=== PATIENT | male | born 1955 | race African-American/Black ===

== ENCOUNTER 2020-02-24 08:19 | Emergency (ER) | payer MEDICAID ==
[~2020-02-24] VITALS: Ht 180.3 cm; Wt 78.0 kg
[~2020-02-24 08:19] MED LIST: AMLO10TA4 PO; ASPI-1158 PO; ATOR10TA PO; LISI-604 PO
[2020-02-24] MEDS ORDERED: BACITRACIN ZINC OINT UDPKT TOP ONE (08:45)
[2020-02-24 11:55] VITALS: BP 151/81
== END 2020-02-24 12:01 | disposition home or self-care (01) ==
LOC: ER 08:19
DX: S09.8XXA Other specified injuries of head, initial encounter (principal); W01.0XXA Fall on same level from slipping, tripping and stumbling without subsequent striking against object, initial encounter; Y93.9 Activity, unspecified; Y92.9 Unspecified place or not applicable; F10.129 Alcohol abuse with intoxication, unspecified; Y90.9 Presence of alcohol in blood, level not specified
CPT/HCPCS: 99284

== ENCOUNTER 2020-04-28 03:19 | Inpatient (IN) | payer MEDICAID ==
[2020-04-28] VITALS (11 sets, daily range): BP systolic 160–188; BP diastolic 93–141
[~2020-04-28] VITALS: Ht 180.3 cm; Wt 81.8 kg
[2020-04-28] MEDS ORDERED: CHLORDIAZEPOXIDE 25MG CAPSULE PO ONE (03:45)
[2020-04-28] MEDS ORDERED: ONDANSETRON HCL 4MG/2ML INJ IV ONE (03:45)
[2020-04-28] MEDS ORDERED: SODIUM CHLORIDE 0.9% 1,000 ML IV ONE ×2 (03:45→04:30)
[2020-04-28] MEDS ORDERED: LORAZEPAM 2MG/ML CPJ IV ONE (04:30)
[2020-04-28] MEDS ORDERED: DIAZEPAM 5 MG/ML 2ML CPJ IV ONE (05:00)
[2020-04-28 05:08] LABS: CANNABINOID URINE SCREEN NEGATIVE (NEGATIVE)
[2020-04-28 05:09] LABS: *AMPHETAMINES SCREEN URINE NEGATIVE (NEGATIVE); *BARBITURATES SCREEN URINE NEGATIVE (NEGATIVE); *BENZODIAZEPINES SCREEN URINE NEGATIVE (NEGATIVE); *COCAINE SCREEN URINE NEGATIVE (NEGATIVE); METHADONE URINE SCREEN NEGATIVE (NEGATIVE); OPIATES URINE SCREEN NEGATIVE (NEGATIVE)
[2020-04-28 05:10] LABS: PHENCYCLIDINE URINE SCREEN NEGATIVE (NEGATIVE)
[2020-04-28] MEDS ORDERED: LEVETIRACETAM 500MG PREMIX 100 ML IV ONE (05:30)
[2020-04-28 05:39] LABS: CHLORIDE 106 mEq/L (98-107)
[2020-04-28 05:43] LABS: BASOPHILS % 1.3 % (0.0-2.0); CLARITY URINE CLOUDY (CLEAR); COLOR URINE DK YELLOW (YELLOW); EOSINOPHILS % 0.2 % (0.0-5.0); HEMATOCRIT. 45.2 % (42.0-52.0); KETONES URINE TRACE (NEGATIVE); LEUKOCYTE ESTERASE URINE 1+ (NEGATIVE); LYMPHOCYTES % 20.9 % (20.0-50.0); MEAN CORPUSCULAR HEMOGLOBIN 33.7 pg (28.0-32.0); MEAN CORPUSCULAR VOLUME 101.5 fL (80.0-94.0); MEAN PLATELET VOLUME 8.9 fl (7.4-10.4); MONOCYTES % 8.9 % (2.0-8.0); NEUTROPHILS % 68.7 % (40.0-76.0); NITRITE URINE NEGATIVE (NEGATIVE); OCCULT BLOOD URINE 3+ (NEGATIVE); PH URINE 5.5 (4.5-8.0); PLATELET 100 x1000/uL (130-400); PROTEIN URINE 3+ (NEGATIVE); RED BLOOD CELL COUNT 4.46 mill/uL (4.7-6.1); RED CELL DISTRIBUTION WIDTH 14.4 % (11.6-14.6); SPECIFIC GRAVITY URINE 1.019 (1.005-1.030)
[2020-04-28 05:44] LABS: ETHANOL BLOOD 36 mg/dL
[2020-04-28 05:48] LABS: CREATINE KINASE 608 IU/L (39-308)
[2020-04-28] MEDS ORDERED: LABETALOL 5MG/ML SYR 20 MG/4 ML SYRINGE IV ONE (06:00)
[2020-04-28] MEDS ORDERED: HYDRALAZINE 20MG/ML VIAL IV ONE (06:15)
[2020-04-28] MEDS ORDERED: CEFTRIAXONE 1 G PREMIX 50 ML IV NR (06:15)
[2020-04-28] MEDS ORDERED: DOCUSATE SODIUM 100MG CAPSULE PO PRN (07:30)
[2020-04-28] MEDS ORDERED: MVI, ADULT NO.1 10 ML, FOLIC ACID 1 MG, THIAMINE HCL 100 MG in SODIUM CHLORIDE 0.9% 1,0... IV ONE ×4 (07:30)
[2020-04-28] MEDS ORDERED: GUAIFENESIN 200MG/10ML SUGAR FREE UDC PO PRN (07:30)
[2020-04-28] MEDS ORDERED: ENOXAPARIN 40MG/0.4ML SYR SUBCUT SCH (07:30)
[2020-04-28] MEDS ORDERED: IPRATROPIUM/ALBUTEROL 0.5-3(2.5)MG/3ML NEB HHN PRN (07:30)
[2020-04-28] MEDS ORDERED: HYDROCODONE/ACETAMINOPHEN 10/325MG TABLET PO PRN (07:30)
[2020-04-28] MEDS ORDERED: CEFTRIAXONE 1 G PREMIX 50 ML IV SCH (07:30)
[2020-04-28] MEDS ORDERED: DIPHENHYDRAMINE 50MG/ML VIAL IV PRN (07:30)
[2020-04-28] MEDS ORDERED: ONDANSETRON HCL 4MG/2ML INJ IV PRN (07:30)
[2020-04-28] MEDS ORDERED: MAGNESIUM/ALUMINUM HYDROXIDE/SIMETHICONE 30ML UDC PO PRN (07:30)
[2020-04-28] MEDS: SODIUM CHLORIDE 0.45% 1,000 ML IV SCH ×2 (08:17→09:13)
[2020-04-28] MEDS ORDERED: THIAMINE HCL 100MG TABLET PO SCH (09:00)
[2020-04-28] MEDS ORDERED: MULTIVITAMINS,THER W-MINERALS TABLET PO SCH (09:00)
[2020-04-28] MEDS ORDERED: FOLIC ACID 1MG TABLET PO SCH (09:00)
[2020-04-28] MEDS: ENOXAPARIN 40MG/0.4ML SYR SUBCUT SCH (09:11)
[2020-04-28] MEDS: LORAZEPAM 2MG/ML CPJ IV PRN (09:12)
[2020-04-28] MEDS: HYDRALAZINE 20MG/ML VIAL IV PRN (09:13)
[2020-04-28] MEDS ORDERED: CHLORDIAZEPOXIDE 25MG CAPSULE PO SCH (10:30)
[2020-04-28] MEDS: LEVETIRACETAM 500MG TABLET PO SCH ×2 (11:47→21:16)
[2020-04-28] MEDS: AMLODIPINE 10MG TABLET PO SCH (11:47)
[2020-04-28] MEDS: AZITHROMYCIN 500 MG in DEXT 5% WATER 250 ML IV SCH (11:48)
[2020-04-28] MEDS: DEXT 5%/0.45% NACL 1000ML 1,000 ML IV SCH ×2 (11:52→21:17)
[2020-04-28] MEDS: CHLORDIAZEPOXIDE 25MG CAPSULE PO SCH ×2 (13:25→21:16)
[2020-04-28] MEDS: METOPROLOL TARTRATE 50MG TABLET PO SCH ×2 (13:25→21:16)
[2020-04-28] MEDS: SODIUM CHLORIDE 0.9% INJ 3ML FLUSH IVF SCH ×2 (14:00→21:17)
[2020-04-28] MEDS: ACETAMINOPHEN 325MG TABLET PO PRN ×2 (16:00→23:46)
[2020-04-28] MEDS: CLONIDINE 0.1MG TABLET PO PRN (23:47)
[2020-04-29] VITALS (12 sets, daily range): BP systolic 131–179; BP diastolic 62–100
[2020-04-29] MEDS: DEXT 5%/0.45% NACL 1000ML 1,000 ML IV SCH ×3 (03:42→23:05)
[2020-04-29] MEDS: CHLORDIAZEPOXIDE 25MG CAPSULE PO SCH ×3 (05:40→21:45)
[2020-04-29] MEDS: SODIUM CHLORIDE 0.9% INJ 3ML FLUSH IVF SCH ×3 (05:40→22:00)
[2020-04-29 05:54] LABS: BASOPHILS % 0.4 % (0.0-2.0); EOSINOPHILS % 0.5 % (0.0-5.0); HEMATOCRIT. 43.4 % (42.0-52.0); HEMOGLOBIN. 14.9 g/dL (14.0-18.0); LYMPHOCYTES % 24.3 % (20.0-50.0); MEAN CORPUSCULAR HEMOGLOBIN 33.8 pg (28.0-32.0); MEAN PLATELET VOLUME 9.5 fl (7.4-10.4); MONOCYTES % 7.5 % (2.0-8.0); NEUTROPHILS % 67.3 % (40.0-76.0); PLATELET 57 x1000/uL (130-400); RED BLOOD CELL COUNT 4.39 mill/uL (4.7-6.1); RED CELL DISTRIBUTION WIDTH 14.4 % (11.6-14.6)
[2020-04-29 06:00] LABS: CHLORIDE 102 mEq/L (98-107)
[2020-04-29] MEDS ORDERED: CEFTRIAXONE 1 G PREMIX 50 ML IV SCH (08:00)
[2020-04-29] MEDS ORDERED: POTASSIUM CHLORIDE 20MEQ TABLET SR PO NR ×2 (08:45→20:00)
[2020-04-29] MEDS ORDERED: POTASSIUM CHLORIDE INJ 40 MEQ in DEXT 5% WATER 500 ML IV NR (09:00)
[2020-04-29] MEDS: ENOXAPARIN 40MG/0.4ML SYR SUBCUT SCH ×2 (09:00→09:04)
[2020-04-29] MEDS: CEFTRIAXONE 1,000 MG in DEXTROSE 5% WATER 50 ML IV SCH (09:02)
[2020-04-29] MEDS: AMLODIPINE 10MG TABLET PO SCH (09:02)
[2020-04-29] MEDS: MULTIVITAMINS,THER W-MINERALS TABLET PO SCH (09:02)
[2020-04-29] MEDS: FOLIC ACID 1MG TABLET PO SCH (09:03)
[2020-04-29] MEDS: LEVETIRACETAM 500MG TABLET PO SCH ×2 (09:03→21:45)
[2020-04-29] MEDS: METOPROLOL TARTRATE 50MG TABLET PO SCH ×2 (09:03→23:05)
[2020-04-29] MEDS: THIAMINE HCL 100MG TABLET PO SCH (09:04)
[2020-04-29 10:01] LABS: T4 FREE 1.12 ng/dL (0.76-1.46)
[2020-04-29] MEDS ORDERED: MAGNESIUM 2 G PREMIX 50 ML IV ONE (10:30)
[2020-04-29] MEDS ORDERED: MAGNESIUM 2 G PREMIX 50 ML IV NR (12:00)
[2020-04-29] MEDS: AZITHROMYCIN 500 MG in DEXT 5% WATER 250 ML IV SCH (14:31)
[2020-04-29] MEDS: SODIUM CHLORIDE 0.45% 1,000 ML IV SCH (20:47)
[2020-04-29 23:59] LABS: CREATINE KINASE 295 IU/L (39-308)
[2020-04-30] VITALS (12 sets, daily range): BP systolic 118–149; BP diastolic 38–104
[2020-04-30] LABS: CREATINE KINASE MB FRACTION 2.1 ng/mL (0.5-3.6)
[2020-04-30] MEDS: SODIUM CHLORIDE 0.9% INJ 3ML FLUSH IVF SCH ×3 (06:00→20:56)
[2020-04-30] MEDS: CHLORDIAZEPOXIDE 25MG CAPSULE PO SCH ×3 (06:04→20:55)
[2020-04-30 07:21] LABS: BASOPHILS % 0.6 % (0.0-2.0); EOSINOPHILS % 2.2 % (0.0-5.0); HEMATOCRIT. 37.8 % (42.0-52.0); HEMOGLOBIN. 12.9 g/dL (14.0-18.0); LYMPHOCYTES % 21.1 % (20.0-50.0); MEAN CORPUSCULAR HEMOGLOBIN 33.7 pg (28.0-32.0); MEAN CORPUSCULAR VOLUME 99.1 fL (80.0-94.0); MEAN PLATELET VOLUME 9.3 fl (7.4-10.4); MONOCYTES % 9.8 % (2.0-8.0); NEUTROPHILS % 66.3 % (40.0-76.0); RED BLOOD CELL COUNT 3.82 mill/uL (4.7-6.1); RED CELL DISTRIBUTION WIDTH 13.9 % (11.6-14.6)
[2020-04-30 07:31] LABS: CHLORIDE 104 mEq/L (98-107)
[2020-04-30 07:40] LABS: CREATINE KINASE 214 IU/L (39-308)
[2020-04-30 07:43] LABS: CREATINE KINASE MB FRACTION 1.6 ng/mL (0.5-3.6)
[2020-04-30 08:08] LABS: PLATELET 50 x1000/uL (130-400)
[2020-04-30] MEDS: THIAMINE HCL 100MG TABLET PO SCH (08:42)
[2020-04-30] MEDS: MULTIVITAMINS,THER W-MINERALS TABLET PO SCH (08:42)
[2020-04-30] MEDS: CEFTRIAXONE 1,000 MG in DEXTROSE 5% WATER 50 ML IV SCH (08:42)
[2020-04-30] MEDS: LEVETIRACETAM 500MG TABLET PO SCH ×2 (08:43→20:55)
[2020-04-30] MEDS: AMLODIPINE 10MG TABLET PO SCH (08:43)
[2020-04-30] MEDS: FOLIC ACID 1MG TABLET PO SCH (08:43)
[2020-04-30] MEDS: SODIUM CHLORIDE 0.45% 1,000 ML IV SCH ×3 (08:47→21:47)
[2020-04-30] MEDS: METOPROLOL TARTRATE 50MG TABLET PO SCH ×2 (08:47→20:56)
[2020-04-30] MEDS ORDERED: POTASSIUM CHLORIDE 20MEQ TABLET SR PO SCH (09:00)
[2020-04-30] MEDS ORDERED: POTASSIUM CHLORIDE INJ 40 MEQ in DEXT 5% WATER 250 ML IV SCH (11:00)
[2020-04-30] MEDS: AZITHROMYCIN 500 MG in DEXT 5% WATER 250 ML IV SCH (11:27)
[2020-04-30] MEDS: DEXT 5%/0.45% NACL 1000ML 1,000 ML IV SCH (13:38)
[2020-04-30 14:08] LABS: PLATELET ESTIMATE MARKEDLY DECREASED
[2020-04-30] MEDS: LORAZEPAM 2MG/ML CPJ IV PRN (23:17)
[2020-04-30] MEDS: VANCOMYCIN 1 G PREMIX 200 ML IV SCH (23:44)
[2020-05-01] VITALS (11 sets, daily range): BP systolic 97–172; BP diastolic 36–101
[2020-05-01] MEDS: SODIUM CHLORIDE 0.9% INJ 3ML FLUSH IVF SCH ×3 (06:00→20:36)
[2020-05-01] MEDS: CHLORDIAZEPOXIDE 25MG CAPSULE PO SCH ×3 (06:07→20:36)
[2020-05-01] MEDS: VANCOMYCIN 1 G PREMIX 200 ML IV SCH ×3 (06:07→21:26)
[2020-05-01 07:51] LABS: BASOPHILS % 0.8 % (0.0-2.0); EOSINOPHILS % 1.7 % (0.0-5.0); HEMATOCRIT. 37.9 % (42.0-52.0); HEMOGLOBIN. 12.9 g/dL (14.0-18.0); LYMPHOCYTES % 19.1 % (20.0-50.0); MEAN CORPUSCULAR HEMOGLOBIN 33.7 pg (28.0-32.0); MEAN CORPUSCULAR VOLUME 99.2 fL (80.0-94.0); MEAN PLATELET VOLUME 9.7 fl (7.4-10.4); MONOCYTES % 14.2 % (2.0-8.0); NEUTROPHILS % 64.2 % (40.0-76.0); PLATELET 55 x1000/uL (130-400); RED BLOOD CELL COUNT 3.82 mill/uL (4.7-6.1); RED CELL DISTRIBUTION WIDTH 13.5 % (11.6-14.6)
[2020-05-01 07:57] LABS: CHLORIDE 105 mEq/L (98-107)
[2020-05-01] MEDS: AMLODIPINE 10MG TABLET PO SCH (09:51)
[2020-05-01] MEDS: AZITHROMYCIN 500 MG TABLET PO SCH (09:51)
[2020-05-01] MEDS: THIAMINE HCL 100MG TABLET PO SCH (09:51)
[2020-05-01] MEDS: LEVETIRACETAM 500MG TABLET PO SCH ×2 (09:51→20:33)
[2020-05-01] MEDS: MULTIVITAMINS,THER W-MINERALS TABLET PO SCH (09:51)
[2020-05-01] MEDS: FOLIC ACID 1MG TABLET PO SCH (09:51)
[2020-05-01] MEDS: METOPROLOL TARTRATE 50MG TABLET PO SCH ×2 (09:52→20:36)
[2020-05-01] MEDS: DEXT 5%/0.45% NACL 1000ML 1,000 ML IV SCH ×3 (12:00→23:12)
[2020-05-02] VITALS (12 sets, daily range): BP systolic 128–167; BP diastolic 72–103
[2020-05-02] MEDS: HYDRALAZINE 20MG/ML VIAL IV PRN (01:47)
[2020-05-02] MEDS: DEXT 5%/0.45% NACL 1000ML 1,000 ML IV SCH (05:00)
[2020-05-02] MEDS: VANCOMYCIN 1 G PREMIX 200 ML IV SCH ×3 (05:33→20:57)
[2020-05-02] MEDS: SODIUM CHLORIDE 0.9% INJ 3ML FLUSH IVF SCH ×3 (05:33→20:41)
[2020-05-02] MEDS: CHLORDIAZEPOXIDE 25MG CAPSULE PO SCH ×3 (05:33→20:48)
[2020-05-02] MEDS: THIAMINE HCL 100MG TABLET PO SCH (09:23)
[2020-05-02] MEDS: AZITHROMYCIN 500 MG TABLET PO SCH (09:23)
[2020-05-02] MEDS: AMLODIPINE 10MG TABLET PO SCH (09:24)
[2020-05-02] MEDS: MULTIVITAMINS,THER W-MINERALS TABLET PO SCH (09:24)
[2020-05-02] MEDS: LEVETIRACETAM 500MG TABLET PO SCH ×2 (09:24→20:40)
[2020-05-02] MEDS: FOLIC ACID 1MG TABLET PO SCH (09:24)
[2020-05-02] MEDS: METOPROLOL TARTRATE 50MG TABLET PO SCH ×2 (09:30→20:41)
[2020-05-02] MEDS: SODIUM CHLORIDE 0.45% 1,000 ML IV SCH (20:56)
[2020-05-03] VITALS (11 sets, daily range): BP systolic 120–165; BP diastolic 59–109
[2020-05-03] MEDS: LORAZEPAM 2MG/ML CPJ IV PRN (02:26)
[2020-05-03] MEDS: CHLORDIAZEPOXIDE 25MG CAPSULE PO SCH ×2 (04:44→13:20)
[2020-05-03] MEDS: SODIUM CHLORIDE 0.9% INJ 3ML FLUSH IVF SCH ×3 (04:44→22:00)
[2020-05-03] MEDS: VANCOMYCIN 1 G PREMIX 200 ML IV SCH (04:44)
[2020-05-03 07:43] LABS: HEMATOCRIT. 37.2 % (42.0-52.0); HEMOGLOBIN. 12.6 g/dL (14.0-18.0); MEAN CORPUSCULAR HEMOGLOBIN 34.1 pg (28.0-32.0); PLATELET 100 x1000/uL (130-400); RED BLOOD CELL COUNT 3.69 mill/uL (4.7-6.1); RED CELL DISTRIBUTION WIDTH 13.3 % (11.6-14.6)
[2020-05-03] MEDS: LEVETIRACETAM 500MG TABLET PO SCH ×2 (08:41→20:42)
[2020-05-03] MEDS: MULTIVITAMINS,THER W-MINERALS TABLET PO SCH (08:42)
[2020-05-03] MEDS: FOLIC ACID 1MG TABLET PO SCH (08:42)
[2020-05-03] MEDS: METOPROLOL TARTRATE 50MG TABLET PO SCH ×2 (08:42→20:42)
[2020-05-03] MEDS: AMLODIPINE 10MG TABLET PO SCH (08:43)
[2020-05-03] MEDS: THIAMINE HCL 100MG TABLET PO SCH (09:00)
[2020-05-03] MEDS: SODIUM CHLORIDE 0.45% 1,000 ML IV SCH (13:17)
[2020-05-03 16:52] LABS: CHLORIDE 107 mEq/L (98-107)
[2020-05-03 16:59] LABS: VANCOMYCIN TROUGH 11.7 ug/mL (5.0-10.0)
[2020-05-03 17:36] LABS: PLATELET ESTIMATE DECREASED
[2020-05-04] VITALS: BP 153/81
[2020-05-04] MEDS: SODIUM CHLORIDE 0.45% 1,000 ML IV SCH ×3 (00:47→14:43)
[2020-05-04 04:00] VITALS: BP 147/78
[2020-05-04] MEDS: SODIUM CHLORIDE 0.9% INJ 3ML FLUSH IVF SCH ×3 (05:29→22:00)
[2020-05-04 08:00] VITALS: BP 125/75
[2020-05-04 08:34] LABS: HEMOGLOBIN. 12.9 g/dL (14.0-18.0); MEAN CORPUSCULAR HEMOGLOBIN 33.7 pg (28.0-32.0); MEAN CORPUSCULAR VOLUME 98.9 fL (80.0-94.0); MEAN PLATELET VOLUME 9.7 fl (7.4-10.4); PLATELET 139 x1000/uL (130-400); RED BLOOD CELL COUNT 3.84 mill/uL (4.7-6.1); RED CELL DISTRIBUTION WIDTH 13.8 % (11.6-14.6)
[2020-05-04] MEDS: FOLIC ACID 1MG TABLET PO SCH (09:09)
[2020-05-04] MEDS: MULTIVITAMINS,THER W-MINERALS TABLET PO SCH (09:09)
[2020-05-04] MEDS: LEVETIRACETAM 500MG TABLET PO SCH ×2 (09:09→20:17)
[2020-05-04] MEDS: THIAMINE HCL 100MG TABLET PO SCH (09:13)
[2020-05-04] MEDS: METOPROLOL TARTRATE 50MG TABLET PO SCH ×2 (09:13→20:17)
[2020-05-04] MEDS: AMLODIPINE 10MG TABLET PO SCH (09:13)
[2020-05-04 09:58] LABS: CHLORIDE 106 mEq/L (98-107)
[2020-05-04 12:00] VITALS: BP 141/91
[2020-05-04 13:05] LABS: PLATELET ESTIMATE NORMAL
[2020-05-04 16:00] VITALS: BP 148/90
[2020-05-04] MEDS ORDERED: POTASSIUM CHLORIDE 20MEQ/PACKET PO NR (16:00)
[2020-05-04] MEDS: CLONIDINE 0.1MG TABLET PO PRN (16:04)
[2020-05-04 20:00] VITALS: BP 133/83
[2020-05-05] VITALS: BP 130/86
== END 2020-05-05 05:16 | DRG 139 ==
LOC: ER 03:19 → 5EST 05:25 → EDBEDREQ 05:28 → ENRESERV 07:58
PROVIDERS: ADMIT Internal Medicine; ATTEND Internal Medicine
PROC: 02HV33Z Insertion of Infusion Device into Superior Vena Cava, Percutaneous Approach (ICD-10-PCS; principal; 2020-04-28)
PROC: B548ZZA Ultrasonography of Superior Vena Cava, Guidance (ICD-10-PCS; 2020-04-28)
DX: J18.9 Pneumonia, unspecified organism (principal); F10.239 Alcohol dependence with withdrawal, unspecified; R56.9 Unspecified convulsions; E87.6 Hypokalemia; I10 Essential (primary) hypertension; M62.82 Rhabdomyolysis; E83.42 Hypomagnesemia; I48.92 Unspecified atrial flutter; E78.5 Hyperlipidemia, unspecified; N39.0 Urinary tract infection, site not specified; B96.20 Unspecified Escherichia coli [E. coli] as the cause of diseases classified elsewhere; R74.0 Nonspecific elevation of levels of transaminase and lactic acid dehydrogenase [LDH]; Z79.899 Other long term (current) drug therapy; Z59.0 Homelessness
CPT/HCPCS: 36415; 71045; 76937; 80048; 80053; 80061; 80202; 80305; 80320; 81003; 82140; 82550; 82553; 82962; 83036; 83735; 83880; 84132; 84439; 84443; 84484; 85025; 85379; 87077; 87186; 87635; 93005; 93306; 97162; 97166; 97530; 99291; C1725; J0360; J0456; J0696; J1650; J1953; J2060; J2405; J3370; J3411; J3475; J3480; J3490; J7030; J7060; G0480

== ENCOUNTER 2022-10-27 01:27 | Inpatient (IN) | payer MEDICAID ==
[~2022-10-27] VITALS: Ht 185.4 cm; Wt 80.5 kg
[~2022-10-27 01:27] MED LIST changes: -ASPI-1158 PO; +ASPI-1406 PO; -LISI-604 PO; +LISI20TA31 PO
[2022-10-27 02:30] LABS: BASOPHILS % 0.2 % (0.0-2.0); HEMATOCRIT. 48.8 % (42.0-52.0); HEMOGLOBIN. 16.4 g/dL (14.0-18.0); LYMPHOCYTES % 7.8 % (20.0-50.0); MEAN CORPUSCULAR HEMOGLOBIN 31.7 pg (28.0-32.0); MEAN CORPUSCULAR VOLUME 94.5 fL (80.0-94.0); MEAN PLATELET VOLUME 8.8 fl (7.4-10.4); MONOCYTES % 6.3 % (2.0-8.0); NEUTROPHILS % 85.7 % (40.0-76.0); PLATELET 76 x1000/uL (130-400); RED BLOOD CELL COUNT 5.16 mill/uL (4.7-6.1); RED CELL DISTRIBUTION WIDTH 16.4 % (11.6-14.6)
[2022-10-27 02:42] LABS: CHLORIDE 99 mEq/L (98-107)
[2022-10-27 02:49] LABS: ETHANOL BLOOD < 10 mg/dL
[2022-10-27] MEDS ORDERED: FOLIC ACID 1 MG, THIAMINE HCL 100 MG, MVI, ADULT NO.1 10 ML in DEXTROSE 5% WATER 1,000 ML IV ONE ×4 (04:30)
[2022-10-27] MEDS ORDERED: LORAZEPAM 2MG/ML CPJ IV ONE (04:30)
[2022-10-27] MEDS ORDERED: MAGNESIUM 2 G PREMIX 50 ML IV ONE (05:30)
[2022-10-27] MEDS ORDERED: MVI, ADULT NO.1 10 ML, FOLIC ACID 1 MG, THIAMINE HCL 100 MG in SODIUM CHLORIDE 0.9% 1,0... IV SCH ×4 (07:30)
[2022-10-27] MEDS ORDERED: ACETAMINOPHEN 325MG TABLET PO PRN ×2 (07:30)
[2022-10-27] MEDS ORDERED: HYDROCODONE/ACETAMINOPHEN 5/325MG TABLET PO PRN (07:30)
[2022-10-27] MEDS ORDERED: LORAZEPAM 2MG/ML CPJ IV PRN (07:30)
[2022-10-27] MEDS ORDERED: ONDANSETRON HCL 4MG/2ML INJ IV PRN (07:30)
[2022-10-27] MEDS ORDERED: CLONIDINE 0.1MG TABLET PO PRN (07:30)
[2022-10-27] MEDS ORDERED: IPRATROPIUM/ALBUTEROL 0.5-3(2.5)MG/3ML NEB HHN PRN (07:30)
[2022-10-27] MEDS ORDERED: LORAZEPAM 0.5MG TABLET PO PRN (07:30)
[2022-10-27] MEDS ORDERED: DOCUSATE SODIUM 100MG CAPSULE PO PRN (07:30)
[2022-10-27] MEDS ORDERED: LEVETIRACETAM 500MG PREMIX 100 ML IV SCH (08:00)
[2022-10-27] MEDS ORDERED: NALOXONE HCL 0.4MG/ML VIAL IV PRN (08:00)
[2022-10-27] MEDS ORDERED: MAGNESIUM 2 G PREMIX 50 ML IV NR (08:30)
[2022-10-27 11:20] VITALS: BP 141/102
[2022-10-27 11:29] LABS: CLARITY URINE TURBID (CLEAR); COLOR URINE ORANGE (YELLOW); KETONES URINE 3+ (NEGATIVE); LEUKOCYTE ESTERASE URINE 1+ (NEGATIVE); NITRITE URINE POSITIVE (NEGATIVE); OCCULT BLOOD URINE 3+ (NEGATIVE); PROTEIN URINE 4+ (NEGATIVE); SPECIFIC GRAVITY URINE 1.026 (1.005-1.030)
[2022-10-27 11:57] LABS: *AMPHETAMINES SCREEN URINE NEGATIVE (NEGATIVE); *BARBITURATES SCREEN URINE NEGATIVE (NEGATIVE); *BENZODIAZEPINES SCREEN URINE NEGATIVE (NEGATIVE); *COCAINE SCREEN URINE NEGATIVE (NEGATIVE); CANNABINOID URINE SCREEN NEGATIVE (NEGATIVE); METHADONE URINE SCREEN NEGATIVE (NEGATIVE); OPIATES URINE SCREEN NEGATIVE (NEGATIVE); PHENCYCLIDINE URINE SCREEN NEGATIVE (NEGATIVE)
[2022-10-27 12:00] VITALS: BP 149/98
[2022-10-27] MEDS ORDERED: ALBUTEROL (0.083%) 2.5MG/3ML NEB HHN PRN (14:15)
[2022-10-27] MEDS ORDERED: IPRATROPIUM BROMIDE (0.02%) 0.5MG/2.5ML NEB HHN PRN (14:15)
[2022-10-27] MEDS ORDERED: CEFTRIAXONE 1 G PREMIX 50 ML IV SCH (14:30)
[2022-10-27 16:00] VITALS: BP 138/91
[2022-10-27 16:16] LABS: PROTHROMBIN TIME 10.6 sec (9.6-11.0)
[2022-10-27 16:56] LABS: T4 FREE 0.96 ng/dL (0.76-1.46)
[2022-10-27] MEDS: CHLORDIAZEPOXIDE 25MG CAPSULE PO SCH ×2 (16:58→21:04)
[2022-10-27] MEDS: CEFTRIAXONE 1,000 MG in DEXTROSE 5% WATER 50 ML IV SCH (16:58)
[2022-10-27 18:25] LABS: HEPATITIS B SURFACE ANTIGEN NEGATIVE
[2022-10-27 20:00] VITALS: BP 119/88
[2022-10-27] MEDS: LEVETIRACETAM 500MG PREMIX 100 ML IV SCH (23:12)
[2022-10-28] VITALS: BP 132/99
[2022-10-28 04:00] VITALS: BP 149/94
[2022-10-28] MEDS: CHLORDIAZEPOXIDE 25MG CAPSULE PO SCH ×3 (05:37→21:00)
[2022-10-28 07:16] LABS: BASOPHILS % 0.2 % (0.0-2.0); EOSINOPHILS % 0.4 % (0.0-5.0); HEMATOCRIT. 47.9 % (42.0-52.0); HEMOGLOBIN. 16.2 g/dL (14.0-18.0); MEAN CORPUSCULAR HEMOGLOBIN 31.7 pg (28.0-32.0); MEAN CORPUSCULAR VOLUME 93.6 fL (80.0-94.0); MONOCYTES % 6.9 % (2.0-8.0); NEUTROPHILS % 73.5 % (40.0-76.0); RED BLOOD CELL COUNT 5.11 mill/uL (4.7-6.1); RED CELL DISTRIBUTION WIDTH 16.7 % (11.6-14.6)
[2022-10-28 07:26] LABS: CHLORIDE 98 mEq/L (98-107)
[2022-10-28 07:39] LABS: PHOSPHORUS 2.6 mg/dL (2.5-4.9)
[2022-10-28 08:00] VITALS: BP 114/83
[2022-10-28 08:25] LABS: MEAN PLATELET VOLUME 9.4 fl (7.4-10.4); PLATELET 38 x1000/uL (130-400)
[2022-10-28] MEDS: ASPIRIN 81MG EC TABLET PO SCH (09:36)
[2022-10-28] MEDS: AMLODIPINE 10MG TABLET PO SCH (09:36)
[2022-10-28] MEDS: FOLIC ACID 1MG TABLET PO SCH (09:37)
[2022-10-28] MEDS: THIAMINE HCL 100MG TABLET PO SCH (09:37)
[2022-10-28] MEDS: MULTIVITAMINS,THER W-MINERALS TABLET PO SCH (09:38)
[2022-10-28] MEDS: LEVETIRACETAM 500MG PREMIX 100 ML IV SCH ×2 (11:38→21:21)
[2022-10-28] MEDS: SODIUM CHLORIDE 0.9% 1,000 ML IV SCH ×2 (11:39→16:41)
[2022-10-28 12:00] VITALS: BP 120/79
[2022-10-28 12:42] LABS: CREATINE KINASE 41624 IU/L (39-308)
[2022-10-28 16:00] VITALS: BP 137/72
[2022-10-28 16:05] LABS: PHOSPHORUS 2.6 mg/dL (2.5-4.9)
[2022-10-28 20:00] VITALS: BP 140/93
[2022-10-28] MEDS: SODIUM BICARBONATE 75 MEQ in DEXT 5%/0.45% NACL 1000ML 1,000 ML IV SCH (23:26)
[2022-10-29] VITALS: BP 131/86
[2022-10-29 04:00] VITALS: BP 136/89
[2022-10-29] MEDS: CHLORDIAZEPOXIDE 25MG CAPSULE PO SCH ×3 (05:24→21:00)
[2022-10-29] MEDS: SODIUM BICARBONATE 75 MEQ in DEXT 5%/0.45% NACL 1000ML 1,000 ML IV SCH ×3 (05:24→20:30)
[2022-10-29 08:00] VITALS: BP 128/78
[2022-10-29 08:09] LABS: HIV SCREEN 4G Non Reactive (Non Reactive)
[2022-10-29 09:03] LABS: CREATINE KINASE 23196 IU/L (39-308)
[2022-10-29] MEDS: LEVETIRACETAM 500MG PREMIX 100 ML IV SCH ×2 (09:55→20:41)
[2022-10-29] MEDS: FOLIC ACID 1MG TABLET PO SCH (09:55)
[2022-10-29] MEDS: THIAMINE HCL 100MG TABLET PO SCH (09:55)
[2022-10-29] MEDS: MULTIVITAMINS,THER W-MINERALS TABLET PO SCH (09:55)
[2022-10-29] MEDS: ASPIRIN 81MG EC TABLET PO SCH (09:55)
[2022-10-29] MEDS: AMLODIPINE 10MG TABLET PO SCH (09:58)
[2022-10-29 12:00] VITALS: BP 113/74
[2022-10-29 16:00] VITALS: BP 106/67
[2022-10-29] MEDS: CEFTRIAXONE 1,000 MG in DEXTROSE 5% WATER 50 ML IV SCH ×2 (16:00→16:46)
[2022-10-29 20:00] VITALS: BP 118/73
[2022-10-30] VITALS (7 sets, daily range): BP systolic 104–141; BP diastolic 60–86
[2022-10-30] MEDS: SODIUM BICARBONATE 75 MEQ in DEXT 5%/0.45% NACL 1000ML 1,000 ML IV SCH ×4 (03:40→23:57)
[2022-10-30] MEDS: CHLORDIAZEPOXIDE 25MG CAPSULE PO SCH ×3 (06:09→21:21)
[2022-10-30 06:20] LABS: CHLORIDE 99 mEq/L (98-107)
[2022-10-30 06:21] LABS: BASOPHILS % 0.6 % (0.0-2.0); EOSINOPHILS % 1.9 % (0.0-5.0); HEMATOCRIT. 39.1 % (42.0-52.0); LYMPHOCYTES % 21.9 % (20.0-50.0); MEAN CORPUSCULAR HEMOGLOBIN 31.2 pg (28.0-32.0); MEAN CORPUSCULAR VOLUME 93.7 fL (80.0-94.0); MEAN PLATELET VOLUME 9.8 fl (7.4-10.4); MONOCYTES % 9.9 % (2.0-8.0); NEUTROPHILS % 65.7 % (40.0-76.0); RED BLOOD CELL COUNT 4.18 mill/uL (4.7-6.1); RED CELL DISTRIBUTION WIDTH 16.2 % (11.6-14.6)
[2022-10-30 06:33] LABS: PLATELET 38 x1000/uL (130-400)
[2022-10-30 06:57] LABS: CREATINE KINASE 9842 IU/L (39-308)
[2022-10-30] MEDS: AMLODIPINE 10MG TABLET PO SCH (08:34)
[2022-10-30] MEDS: MULTIVITAMINS,THER W-MINERALS TABLET PO SCH (08:34)
[2022-10-30] MEDS: ASPIRIN 81MG EC TABLET PO SCH (08:34)
[2022-10-30] MEDS: FOLIC ACID 1MG TABLET PO SCH (08:34)
[2022-10-30] MEDS: THIAMINE HCL 100MG TABLET PO SCH (08:34)
[2022-10-30] MEDS: LEVETIRACETAM 500MG TABLET PO SCH ×2 (08:34→21:21)
[2022-10-30] MEDS ORDERED: LIDOCAINE HCL 1% 10 MG/ML 10ML VIAL ONE (12:28)
[2022-10-30 13:11] LABS: ANTI-NUCLEAR ANTIBODIES DIRECT Negative (Negative)
[2022-10-30] MEDS: CEFTRIAXONE 1,000 MG in DEXTROSE 5% WATER 50 ML IV SCH (15:27)
[2022-10-31] VITALS: BP 122/72
[2022-10-31 04:00] VITALS: BP 133/74
[2022-10-31] MEDS: CHLORDIAZEPOXIDE 25MG CAPSULE PO SCH ×3 (05:24→21:34)
[2022-10-31 06:49] LABS: BASOPHILS % 0.5 % (0.0-2.0); EOSINOPHILS % 2.8 % (0.0-5.0); HEMATOCRIT. 35.1 % (42.0-52.0); LYMPHOCYTES % 28.4 % (20.0-50.0); MEAN CORPUSCULAR HEMOGLOBIN 31.9 pg (28.0-32.0); MEAN CORPUSCULAR VOLUME 93.5 fL (80.0-94.0); MONOCYTES % 14.7 % (2.0-8.0); NEUTROPHILS % 53.6 % (40.0-76.0); PLATELET 53 x1000/uL (130-400); RED BLOOD CELL COUNT 3.76 mill/uL (4.7-6.1); RED CELL DISTRIBUTION WIDTH 16.3 % (11.6-14.6)
[2022-10-31 07:37] LABS: CHLORIDE 104 mEq/L (98-107)
[2022-10-31 07:55] VITALS: BP 133/87
[2022-10-31 08:02] LABS: CREATINE KINASE 4440 IU/L (39-308)
[2022-10-31] MEDS: AMLODIPINE 10MG TABLET PO SCH (09:01)
[2022-10-31] MEDS: THIAMINE HCL 100MG TABLET PO SCH (09:01)
[2022-10-31] MEDS: LEVETIRACETAM 500MG TABLET PO SCH ×2 (09:01→21:33)
[2022-10-31] MEDS: ASPIRIN 81MG EC TABLET PO SCH (09:01)
[2022-10-31] MEDS: SODIUM CHLORIDE 0.45% 1,000 ML IV SCH ×3 (09:01→21:33)
[2022-10-31] MEDS: MULTIVITAMINS,THER W-MINERALS TABLET PO SCH (09:01)
[2022-10-31] MEDS: FOLIC ACID 1MG TABLET PO SCH (09:02)
[2022-10-31 12:00] VITALS: BP 116/78
[2022-10-31] MEDS: CEFTRIAXONE 1,000 MG in DEXTROSE 5% WATER 50 ML IV SCH (15:23)
[2022-10-31 15:59] VITALS: BP 126/73
[2022-10-31] MEDS ORDERED: POTASSIUM CHLORIDE 20MEQ TABLET SR PO NR (19:30)
[2022-10-31 20:00] VITALS: BP 129/71
[2022-11-01] VITALS: BP 125/73
[2022-11-01] MEDS: SODIUM CHLORIDE 0.45% 1,000 ML IV SCH ×2 (03:32→11:30)
[2022-11-01 04:00] VITALS: BP 111/57
[2022-11-01] MEDS: CHLORDIAZEPOXIDE 25MG CAPSULE PO SCH ×2 (05:11→13:06)
[2022-11-01 08:14] VITALS: BP 138/80
[2022-11-01] MEDS: FOLIC ACID 1MG TABLET PO SCH (08:35)
[2022-11-01] MEDS: THIAMINE HCL 100MG TABLET PO SCH (08:35)
[2022-11-01] MEDS: MULTIVITAMINS,THER W-MINERALS TABLET PO SCH (08:35)
[2022-11-01] MEDS: LEVETIRACETAM 500MG TABLET PO SCH (08:35)
[2022-11-01] MEDS: ASPIRIN 81MG EC TABLET PO SCH (08:35)
[2022-11-01] MEDS: AMLODIPINE 10MG TABLET PO SCH (08:36)
[2022-11-01 10:40] LABS: HEMATOCRIT. 37.5 % (42.0-52.0); HEMOGLOBIN. 12.5 g/dL (14.0-18.0); MEAN CORPUSCULAR HEMOGLOBIN 31.3 pg (28.0-32.0); MEAN PLATELET VOLUME 10.3 fl (7.4-10.4); PLATELET 98 x1000/uL (130-400); RED BLOOD CELL COUNT 3.99 mill/uL (4.7-6.1); RED CELL DISTRIBUTION WIDTH 16.3 % (11.6-14.6)
[2022-11-01 11:24] LABS: CHLORIDE 107 mEq/L (98-107)
[2022-11-01 11:47] LABS: CREATINE KINASE 1984 IU/L (39-308); PHOSPHORUS 3.9 mg/dL (2.5-4.9)
[2022-11-01 12:00] VITALS: BP 126/63
[2022-11-01] MEDS ORDERED: KEPP500 PO (13:00)
[2022-11-01] MEDS ORDERED: THIA100T72 PO (13:00)
[2022-11-01] MEDS ORDERED: FOLI-43 PO (13:00)
[2022-11-01 13:34] LABS: PLATELET ESTIMATE DECREASED
[2022-11-01 15:29] VITALS: BP 133/74
[2022-11-01 15:35] VITALS: BP 133/74
[2022-11-01] MEDS: CEFTRIAXONE 1,000 MG in DEXTROSE 5% WATER 50 ML IV SCH (16:27)
== END 2022-11-01 18:35 | disposition home or self-care (01) | DRG 53 ==
LOC: ER 01:27 → MICUSO 05:53 → 7WST 12:00
PROVIDERS: ADMIT Family Medicine Adult Medicine; ATTEND Family Medicine Adult Medicine
PROC: 02HV33Z Insertion of Infusion Device into Superior Vena Cava, Percutaneous Approach (ICD-10-PCS; principal; 2022-10-30)
PROC: B548ZZA Ultrasonography of Superior Vena Cava, Guidance (ICD-10-PCS; 2022-10-30)
DX: G40.909 Epilepsy, unspecified, not intractable, without status epilepticus (principal); G92.8 Other toxic encephalopathy; D69.6 Thrombocytopenia, unspecified; M62.82 Rhabdomyolysis; F10.239 Alcohol dependence with withdrawal, unspecified; Z20.822 Contact with and (suspected) exposure to COVID-19; B19.20 Unspecified viral hepatitis C without hepatic coma; I11.0 Hypertensive heart disease with heart failure; I50.32 Chronic diastolic (congestive) heart failure; E83.42 Hypomagnesemia; R74.01 Elevation of levels of liver transaminase levels; E80.6 Other disorders of bilirubin metabolism
CPT/HCPCS: 36415; 36573; 71045; 76700; 80048; 80053; 80061; 80076; 80305; 80320; 81003; 82140; 82150; 82550; 82570; 83036; 83735; 84100; 84156; 84439; 84443; 84481; 85025; 86038; 86160; 86592; 86705; 86709; 86803; 87340; 87389; 93005; 99285; C1725; J0696; J1953; J2060; J3411; J3475; J3490; J7030; J7060; J7070; A4315; G0480